=== PATIENT | female | born 1975 | race Two or more races ===

== ENCOUNTER 2019-12-07 19:36 | Emergency (ER) | payer OTHER ==
[~2019-12-07] VITALS: Ht 162.6 cm; Wt 54.4 kg
[2019-12-07] MEDS ORDERED: FLUORESCEIN SODIUM OPHTH 1 EA STRIP OP ONE (20:00)
[2019-12-07] MEDS ORDERED: TETRAcaine 5 ML BOTTLE EACHEYE ONE (20:00)
[2019-12-07] MEDS ORDERED: IV NS 0.9% 1,000 ML BAG IV ONE (20:00)
[2019-12-07] MEDS ORDERED: FLUORESCEIN SODIUM OPHTH 1 EA STRIP ONE (20:07)
--- NOTE | 2019-12-07 20:29 | NUR ---
Sammi LEMUS PA-C IS AT THE BEDSIDE FOR EYE EXAM. FLOUR I STRIP AND TETRICAINE IS AT THE BEDSIDE.
[2019-12-07 21:20] VITALS: BP 138/87
== END 2019-12-07 21:20 | disposition home or self-care (01) ==
LOC: ER 19:36
DX: H10.212 Acute toxic conjunctivitis, left eye (principal); Z98.890 Other specified postprocedural states
CPT/HCPCS: 99283; J7030